=== PATIENT | female | born 1970 | race Caucasian/White ===

== ENCOUNTER 2019-09-05 | Emergency (ER) | payer SELFPAY ==
[~2019-09-05] MED LIST: ALPRAZOLAM0.25 M1 PO; IBUPROFEN800 MG PO; NO HOME MEDS
[2019-09-05 23:44] LABS: HEMATOCRIT 39.2 % (37.0-47.0); HEMOGLOBIN 12.6 g/dl (12.0-16.0); IMMATURE GRANULOCYTES 0.5 % (0.0-5.0); MEAN CELL VOLUME 87.3 fL CALC (80.0-100.0); MEAN CORPUSCULAR HGB 28.1 pG CALC (26.0-32.0); MEAN CORPUSCULAR HGB CONC 32.1 g/L CALC (32.0-36.0); NEUT# 5.08 thou/uL (2.00-7.15); RED BLOOD COUNT 4.49 mill/uL (4.20-5.60)
[2019-09-06] MEDS ORDERED: TAM75CAP PO (00:21)
== END 2019-09-06 00:36 | disposition home or self-care (01) | DRG 153 ==
PROVIDERS: Family Medicine
DX: J11.1 Influenza due to unidentified influenza virus with other respiratory manifestations (principal); F17.210 Nicotine dependence, cigarettes, uncomplicated

== ENCOUNTER 2019-10-03 | Emergency (ER) | payer SELFPAY ==
[~2019-10-03] MED LIST changes: +TAM75CAP PO
[2019-10-03] MEDS ORDERED: GABAPENTIN300 M2 PO (12:54)
[2019-10-03 13:42] LABS: HEMATOCRIT 39.1 % (37.0-47.0); HEMOGLOBIN 12.5 g/dl (12.0-16.0); IMMATURE GRANULOCYTES 0.2 % (0.0-5.0); MEAN CELL VOLUME 87.5 fL CALC (80.0-100.0); NEUT# 4.12 thou/uL (2.00-7.15); RED BLOOD COUNT 4.47 mill/uL (4.20-5.60); RED CELL DISTRI WIDTH 13.3 % (11.5-15.5)
[2019-10-03 13:42] LABS: URINE BILIRUBIN - DIPSTICK NEGATIVE (NEGATIVE); URINE BLOOD DIPSTICK NEGATIVE (NEGATIVE); URINE COLOR YELLOW; URINE GLUCOSE - DIPSTICK NEGATIVE (NEGATIVE); URINE KETONE NEGATIVE (NEGATIVE); URINE LEUK ESTERASE NEGATIVE (NEGATIVE); URINE NITRITE - DIPSTICK NEGATIVE (Negative); URINE PH 7.5 (4.5-8.0); URINE PROTEIN - DIPSTICK NEGATIVE (NEG-TRACE); URINE UROBILINOGEN - DIPSTICK 0.2 E.U./dL (0.2)
[2019-10-03 14:00] LABS: ALBUMIN 4.3 g/dL (3.2-5.0); ANION GAP 11 (6-22 (CALC)); BUN 9 mg/dL (7-17); BUN/CREATININE RATIO 16 (12-20 (CALC)); CARBON DIOXIDE 27 mmol/l (22-30); CHLORIDE 104 mmol/l (95-108); CREATININE 0.5 mg/dL (0.5-1.0); GFR > 60 ML/MIN (>=60 (CALC)); GFR FOR AFR.AMER. > 60 ML/MIN (>=60 (CALC)); LIPASE 114 u/l (23-300); POTASSIUM 3.6 mmol/l (3.5-5.1); SGOT/AST 25 u/l (14-36); SODIUM 139 mmol/l (137-146); TOTAL PROTEIN 7.8 g/dL (6.3-8.2)
[2019-10-03 14:06] LABS: ALKALINE PHOSPHATASE 76 u/l (38-126); BILIRUBIN, TOTAL 0.3 mg/dL (0.0-1.4)
[2019-10-03] MEDS ORDERED: VOLTAREN1%GEL TOP (14:19)
== END 2019-10-03 14:32 | disposition home or self-care (01) | DRG 206 ==
PROVIDERS: Family Medicine
DX: M94.0 Chondrocostal junction syndrome [Tietze] (principal); F17.200 Nicotine dependence, unspecified, uncomplicated

== ENCOUNTER 2024-03-11 10:17 | Emergency (ER) | payer SELFPAY ==
[~2024-03-11] VITALS: Ht 165.1 cm; Wt 58.0 kg
[~2024-03-11 10:17] MED LIST changes: +GABAPENTIN300 M2 PO; +VOLTAREN1%GEL TOP
[2024-03-11 10:43] VITALS: BP 142/87
[2024-03-11 10:45] VITALS: BP 125/90
[2024-03-11] MEDS ORDERED: DiphenhydrAMINE HCL 50 MG/ML SDV IV ONE (11:00)
[2024-03-11] MEDS ORDERED: SODIUM CHLORIDE 0.9% 1,000 ML IV ONE (11:00)
[2024-03-11] MEDS ORDERED: KETOROLAC TROMETHAMINE 30 MG/ML SDV IV ONE (11:00)
[2024-03-11] MEDS ORDERED: METOCLOPRAMIDE HCL 10 MG/2 ML SDV IV ONE (11:00)
[2024-03-11 11:20] LABS: URINE BLOOD DIPSTICK Trace-intact (NEGATIVE); URINE GLUCOSE - DIPSTICK Negative (NEGATIVE); URINE KETONE Trace mg/dL (NEGATIVE); URINE LEUK ESTERASE Negative (NEGATIVE); URINE NITRITE - DIPSTICK Negative (Negative); URINE PH 5.5 (4.5-8.0); URINE PROTEIN - DIPSTICK 30 mg/dL (NEG-TRACE); URINE SPECIFIC GRAVITY >=1.030; URINE UROBILINOGEN - DIPSTICK 0.2 E.U./dL (0.2)
[2024-03-11 11:21] LABS: URINE COLOR Yellow; URINE EPITHELIAL CELLS MODERATE EPI/hpf (0-FEW); URINE RBC 0-2 RBC/hpf (0-5)
[2024-03-11 11:23] LABS: BASO% 0.3 % (0-3); EOS% 2.4 % (0-8); HEMATOCRIT 43.9 % (37.0-47.0); HEMOGLOBIN 14.4 g/dl (12.0-16.0); LYMPH% 29.1 % (15-41); MEAN CORPUSCULAR HGB 27.3 pG CALC (26.0-32.0); MEAN CORPUSCULAR HGB CONC 32.8 g/dL CAL (32.0-36.0); MONO% 8.4 % (2-13); NEUT# 3.5 thou/uL (2.00-7.15); NEUT% 59.8 % (42-76); RED BLOOD COUNT 5.28 mill/uL (4.20-5.60); RED CELL DISTRI WIDTH 12.4 % (11.5-15.5)
[2024-03-11 11:30] LABS: MEAN CELL VOLUME 83.1 fL CALC (80.0-100.0)
[2024-03-11 11:33] LABS: ALBUMIN 4.1 g/dL (3.2-5.0); CREATININE 0.5 mg/dL (0.5-1.0); POTASSIUM 3.4 mmol/l (3.5-5.1); TOTAL PROTEIN 7.6 g/dL (6.3-8.2)
[2024-03-11 11:34] LABS: BILIRUBIN, TOTAL 0.8 mg/dL (0.02-1.3)
[2024-03-11] MEDS ORDERED: DEXAMETHASONE SOD. PHOSPHATE 10 MG/ML VIAL IV ONE (12:00)
[2024-03-11 12:10] VITALS: BP 125/90
== END 2024-03-11 12:30 | disposition home or self-care (01) | DRG 103 ==
LOC: ED 10:17
PROVIDERS: Family Medicine
DX: R51.9 Headache, unspecified (principal); F17.200 Nicotine dependence, unspecified, uncomplicated; Z20.822 Contact with and (suspected) exposure to COVID-19

== ENCOUNTER 2024-04-15 18:02 | Emergency (ER) | payer SELFPAY ==
[~2024-04-15] VITALS: Ht 165.1 cm; Wt 63.5 kg
[2024-04-15] VITALS (8 sets, daily range): BP systolic 142–167; BP diastolic 85–119
[2024-04-15] MEDS ORDERED: ONDANSETRON 4 MG/TAB ODT SL ONE (18:25)
[2024-04-15] MEDS ORDERED: KETOROLAC TROMETHAMINE 30 MG/ML SDV IM ONE (18:25)
[2024-04-15] MEDS ORDERED: ZPAK PO (19:11)
[2024-04-15] MEDS ORDERED: ZOFRAN4 MG/TAB PO (19:32)
== END 2024-04-15 19:42 | disposition home or self-care (01) | DRG 179 ==
LOC: ED 18:02
DX: U07.1 COVID-19 (principal); R11.2 Nausea with vomiting, unspecified; R05.9 Cough, unspecified; R09.81 Nasal congestion; R50.9 Fever, unspecified; R52 Pain, unspecified; F17.200 Nicotine dependence, unspecified, uncomplicated

== ENCOUNTER 2024-11-13 14:26 | Observation (INO) | payer SELFPAY ==
[2024-11-13] VITALS (15 sets, daily range): BP systolic 116–164; BP diastolic 59–98
[~2024-11-13] VITALS: Ht 165.1 cm; Wt 52.8 kg
[~2024-11-13 14:26] MED LIST changes: +ZOFRAN4 MG/TAB PO; +ZPAK PO
[2024-11-13 15:05] LABS: BASO% 0.2 % (0-3); EOS% 3.3 % (0-8); HEMATOCRIT 38.4 % (37.0-47.0); HEMOGLOBIN 12.5 g/dl (12.0-16.0); MEAN CELL VOLUME 81.2 fL CALC (80.0-100.0); MEAN CORPUSCULAR HGB 26.4 pG CALC (26.0-32.0); MEAN CORPUSCULAR HGB CONC 32.6 g/dL CAL (32.0-36.0); MONO% 11.7 % (2-13); NEUT# 2.14 thou/uL (2.00-7.15); NEUT% 40.8 % (42-76); RED BLOOD COUNT 4.73 mill/uL (4.20-5.60); RED CELL DISTRI WIDTH 12.6 % (11.5-15.5)
[2024-11-13 15:39] LABS: ALBUMIN 3.6 g/dL (3.2-5.0); ALKALINE PHOSPHATASE 106 u/l (38-126); BILIRUBIN, TOTAL 0.5 mg/dL (0.02-1.3); BUN 13 mg/dL (7-17); BUN/CREATININE RATIO 29 (12-20 (CALC)); CHLORIDE 106 mmol/l (95-108); CREATININE 0.4 mg/dL (0.5-1.0); ESTIMATED GFR 119 ML/MIN (>=90 (CALC)); POTASSIUM 3.4 mmol/l (3.5-5.1); SODIUM 143 mmol/l (137-146); TOTAL PROTEIN 6.5 g/dL (6.3-8.2)
[2024-11-13 15:42] LABS: ANION GAP 6 (6-22 (CALC)); CARBON DIOXIDE 34 mmol/l (22-30); SGOT/AST 54 u/l (14-36)
[2024-11-13 16:09] LABS: TSH, 3RD GENERATION < 0.02 uIU/mL (0.47 - 4.68)
[2024-11-13] MEDS ORDERED: ATENOLOL 25 MG TAB PO ONE (16:50)
[2024-11-13] MEDS ORDERED: GABAPENTIN100 MG PO (16:56)
[2024-11-13] MEDS ORDERED: MOTRIN400 MG/TAB PO (16:58)
[2024-11-13] MEDS ORDERED: MAGNESIUM HYDROXIDE 30 ML UDC PO PRN (17:35)
[2024-11-13] MEDS ORDERED: SODIUM CHLORIDE 0.9% 1,000 ML IV PRN (17:35)
[2024-11-13] MEDS ORDERED: ACETAMINOPHEN 325 MG/TAB PO PRN (17:35)
[2024-11-13] MEDS ORDERED: ENOXAPARIN SODIUM 40 MG/0.4 ML SYR SC SCH (21:00)
[2024-11-13] MEDS ORDERED: ATENOLOL 25 MG TAB PO SCH (21:00)
[2024-11-14] VITALS (9 sets, daily range): BP systolic 129–141; BP diastolic 65–77
[2024-11-15 00:15] VITALS: BP 138/75
[2024-11-15 02:40] VITALS: BP 134/77
[2024-11-15 05:33] LABS: BASO% 0.3 % (0-3); EOS% 2.5 % (0-8); HEMATOCRIT 39.3 % (37.0-47.0); HEMOGLOBIN 12.9 g/dl (12.0-16.0); LYMPH% 44.5 % (15-41); MEAN CELL VOLUME 80.5 fL CALC (80.0-100.0); MEAN CORPUSCULAR HGB 26.4 pG CALC (26.0-32.0); MEAN CORPUSCULAR HGB CONC 32.8 g/dL CAL (32.0-36.0); NEUT# 2.94 thou/uL (2.00-7.15); NEUT% 42.7 % (42-76); RED BLOOD COUNT 4.88 mill/uL (4.20-5.60); RED CELL DISTRI WIDTH 12.3 % (11.5-15.5)
[2024-11-15 05:34] VITALS: BP 134/77
[2024-11-15 05:46] LABS: ALBUMIN 3.5 g/dL (3.2-5.0); BILIRUBIN, TOTAL 0.6 mg/dL (0.02-1.3); CREATININE 0.4 mg/dL (0.5-1.0); MAGNESIUM 1.7 mg/dL (1.6-2.3); POTASSIUM 3.9 mmol/l (3.5-5.1); TOTAL PROTEIN 6.6 g/dL (6.3-8.2)
[2024-11-15 07:55] VITALS: BP 146/67
[2024-11-15 09:09] VITALS: BP 146/97
[2024-11-15] MEDS ORDERED: TENORMIN25 MG PO (11:07)
[2024-11-15] MEDS ORDERED: METHIMAZOLE5 MG PO (11:07)
== END 2024-11-15 12:55 | disposition home or self-care (01) | DRG 645 ==
LOC: ED 14:26 → ED-I 16:33 → ED 16:50 → MS2 16:51
PROVIDERS: Family Medicine; Nurse Practitioner Family; ADMIT Internal Medicine; ATTEND Internal Medicine
DX: E05.00 Thyrotoxicosis with diffuse goiter without thyrotoxic crisis or storm (principal); Z87.891 Personal history of nicotine dependence; Z83.49 Family history of other endocrine, nutritional and metabolic diseases
CPT/HCPCS: G0378; J1650